=== PATIENT | male | born 1995 | race Two or more races ===

== ENCOUNTER 2021-04-30 16:32 | Inpatient (IN) | payer MEDICAID ==
[~2021-04-30] VITALS: Ht 177.8 cm; Wt 102.1 kg
[2021-04-30] MEDS ORDERED: MULT-1203 PO (17:02)
[2021-04-30] MEDS ORDERED: RISP2TAB45 PO (17:02)
[2021-04-30] MEDS ORDERED: ZOLPIDEM TARTRATE 10 MG TABLET PO PRN (20:30)
[2021-04-30] MEDS ORDERED: HALOPERIDOL 5 MG TABLET PO PRN (20:30)
[2021-04-30] MEDS ORDERED: INFLUENZA VIRUS VACCINE QVS 2021-22 (6MO+)/PF 60 MCG/0.5 ML SYRINGE IM. ONE (20:45)
[2021-04-30 20:47] VITALS: BP 110/66
[2021-05-01 05:33] VITALS: BP 112/62
[2021-05-01 08:39] LABS: BASOPHILS % (AUTO) 0.4 % (0.0-2.0); EOSINOPHILS % (AUTO) 1.9 % (1.0-6.0); HEMOGLOBIN 16.2 g/dL (13.5-17.5); MEAN CORPUSCULAR HEMOGLOBIN 30.6 pg (26.0-34.0); MEAN CORPUSCULAR HGB CONC 33.7 G/dL (31.0-37.0); MEAN CORPUSCULAR VOLUME 91 fL (80-100); MONOCYTES # (AUTO) 0.7 K/uL (0.1-1.0); NEUTROPHILS # (AUTO) 4.2 K/uL (1.8-7.7); NEUTROPHILS % (AUTO) 51.7 % (40.0-70.0); PLATELET COUNT (AUTO) 217 K/uL (150-450); RED BLOOD CELL COUNT(AUTO) 5.29 MIL/uL (4.50-5.90); RED CELL DISTRIBUTION WIDTH 13.4 % (11.5-14.5)
[2021-05-01 08:43] VITALS: BP 116/68
[2021-05-01 08:51] LABS: HEMOGLOBIN A1C 5.3 % (3.8-5.6)
[2021-05-01 09:09] LABS: ALANINE AMINOTRANSFERASE 23 U/L (12-78); ALKALINE PHOSPHATASE 63 U/L (46-116); ANION GAP 8 mmol/L (8-16); ASPARTATE AMINOTRANSFERASE 16 U/L (15-37); BILIRUBIN,TOTAL 0.4 mg/dL (0.1-1.0); CALCIUM, TOTAL 9.1 mg/dL (8.8-10.5); CARBON DIOXIDE 25 mmol/L (22-29); CHLORIDE 104 mmol/L (98-107); CHOLESTEROL 180 mg/dL (131-200); CREATININE 0.74 mg/dL (0.60-1.30); FREE T4 (FREE THYROXINE) 0.98 ng/dL (0.76-1.46); GLOMERULAR FILTR. RATE CALC > 60 mL/min (>60); GLUCOSE,RANDOM 87 mg/dL (70-110); HDL CHOLESTEROL 36 mg/dL (40-60); LDL CHOL (CALC.) 103 mg/dL (0-130); SODIUM SERUM 137 mmol/L (136-145); THYROID STIMULATING HORMONE 2.49 uIU/mL (0.36-3.74); TOTAL PROTEIN, SERUM 7.7 g/dL (6.4-8.2); TRIGLYCERIDES 205 mg/dL (15-150); UREA NITROGEN, BLOOD 13 mg/dL (7-18)
[2021-05-01] MEDS ORDERED: ARIP10TA38 PO (09:27)
[2021-05-01] MEDS: ARIPiprazole 10 MG TABLET PO SCH (10:12)
[2021-05-01 16:12] VITALS: BP 125/66
[2021-05-02 04:35] VITALS: BP 108/76
[2021-05-02 08:20] VITALS: BP 137/76
[2021-05-02 08:26] VITALS: BP 145/82
[2021-05-02] MEDS: ARIPiprazole 10 MG TABLET PO SCH (08:44)
[2021-05-02] MEDS: LORazepam 2 MG TABLET PO PRN (08:45)
[2021-05-02] MEDS: OMEGA-3/DHA/EPA/FISH OIL 1,000 MG CAPSULE PO SCH (08:50)
[2021-05-02 16:07] VITALS: BP 113/63
[2021-05-03 05:31] VITALS: BP 104/76
[2021-05-03 08:12] VITALS: BP 115/74
[2021-05-03] MEDS: ARIPiprazole 10 MG TABLET PO SCH (08:40)
[2021-05-03] MEDS: OMEGA-3/DHA/EPA/FISH OIL 1,000 MG CAPSULE PO SCH (08:40)
[2021-05-03 16:24] VITALS: BP 136/74
[2021-05-04 04:55] VITALS: BP 114/74
[2021-05-04] MEDS: LORazepam 2 MG TABLET PO PRN ×2 (08:40→16:21)
[2021-05-04] MEDS: OMEGA-3/DHA/EPA/FISH OIL 1,000 MG CAPSULE PO SCH (08:40)
[2021-05-04] MEDS: ARIPiprazole 10 MG TABLET PO SCH (08:40)
[2021-05-04 10:37] VITALS: BP 136/80
[2021-05-04 16:08] VITALS: BP 130/86
[2021-05-05 04:26] VITALS: BP 126/71
[2021-05-05 08:10] VITALS: BP 116/69
[2021-05-05] MEDS: OMEGA-3/DHA/EPA/FISH OIL 1,000 MG CAPSULE PO SCH (08:10)
[2021-05-05] MEDS: ARIPiprazole 10 MG TABLET PO SCH (08:10)
[2021-05-05] MEDS: LORazepam 2 MG TABLET PO PRN (08:11)
[2021-05-05 16:20] VITALS: BP 121/66
[2021-05-06] MEDS: ARIPiprazole 10 MG TABLET PO SCH (08:17)
[2021-05-06] MEDS: OMEGA-3/DHA/EPA/FISH OIL 1,000 MG CAPSULE PO SCH (08:17)
[2021-05-06] MEDS: LORazepam 2 MG TABLET PO PRN (08:19)
[2021-05-06 10:47] VITALS: BP 126/70
[2021-05-06] MEDS ORDERED: ARIP15TA27 PO ×2 (11:28→14:55)
== END 2021-05-06 12:00 | disposition home or self-care (01) | DRG 750 ==
LOC: B3A 20:24
PROVIDERS: ADMIT Psychiatry & Neurology Psychiatry; ATTEND Psychiatry & Neurology Psychiatry
DX: F20.0 Paranoid schizophrenia (principal); E66.9 Obesity, unspecified; Z68.32 Body mass index [BMI] 32.0-32.9, adult; E78.5 Hyperlipidemia, unspecified; F15.10 Other stimulant abuse, uncomplicated; F10.10 Alcohol abuse, uncomplicated; Z79.899 Other long term (current) drug therapy; Z81.8 Family history of other mental and behavioral disorders
CPT/HCPCS: 80053; 80061; 83036; 84439; 84443; 85025; 87081; 90686